=== PATIENT | male | born 1960 | race Caucasian/White ===

== ENCOUNTER 2021-12-20 05:23 | Emergency (ER) | payer BC, OTHER ==
[~2021-12-20] VITALS: Ht 180.3 cm; Wt 65.9 kg
[2021-12-20 05:44] VITALS: BP 146/97
[2021-12-20] MEDS ORDERED: LIDOCAINE 1% HCL (LOCAL ANESTH.) INJ 20ML MDV IJ ONE (07:00)
== END 2021-12-20 07:59 | disposition home or self-care (01) ==
LOC: ER 05:23
DX: S60.352A Superficial foreign body of left thumb, initial encounter (principal); F17.210 Nicotine dependence, cigarettes, uncomplicated; X58.XXXA Exposure to other specified factors, initial encounter; Y93.89 Activity, other specified; Y92.89 Other specified places as the place of occurrence of the external cause; Y99.8 Other external cause status
CPT/HCPCS: 10120